=== PATIENT | male | born 1935 | race Caucasian/White ===

== ENCOUNTER 2020-08-26 02:45 | Inpatient (IN) | payer MEDICARE ==
[2020-08-26] MEDS ORDERED: Ondansetron PF 4 MG/2 ML Vial ONE ×2 (02:52→04:35)
[2020-08-26] MEDS ORDERED: Atropine Sulfate 1 mg/10 ml Syringe ONE (02:57)
[2020-08-26] MEDS ORDERED: Heparin 10,000 UNITS/ 10 ML VIAL ONE ×2 (03:13→04:13)
[2020-08-26] MEDS ORDERED: Midazolam HCl 2 mg/2 ml Vial ONE (03:24)
[2020-08-26] MEDS ORDERED: Clopidogrel Bisulfate 300 MG TAB ONE (03:24)
[2020-08-26] MEDS ORDERED: Fentanyl 100 MCG/2 ML VIAL ONE (03:24)
[2020-08-26] MEDS ORDERED: Amiodarone 150 MG/3 ML VIAL ONE ×2 (03:36)
[2020-08-26 03:39] LABS: Hemoglobin 8.9 g/dL (14.0-18.0); Mean Corpuscular HGB CONC 29.9 g/dL (32.0-36.0); Mean Corpuscular Hemoglobin 20.5 pg (27.0-31.0); Mean Corpuscular Volume 68.4 fL (78.0-98.0); Mean Platelet Volume 7.8 fL (7.4-10.4); Platelet Count 283 thou/uL (130-400); RBC Distribution Width 20.3 % (11.5-14.5); Red Blood Cell (RBC) Count 4.32 mill/uL (4.70-6.10); White Blood Cell (WBC) Count 8.6 thou/uL (4.8-10.8)
[2020-08-26 03:45] LABS: ALT (SGPT) 17 U/L (8-55); AST (SGOT) 27 U/L (5-34); Albumin 3.5 g/dL (3.4-4.8); Alkaline Phosphatase 116 U/L (40-110); Anion Gap 20 mmol/L (10-20); BUN (Urea Nitrogen) 21 mg/dL (8.4-25.7); Bilirubin, Total 0.5 mg/dL (0.2-1.2); Calc. Creatinine Clearance 0 mL/min (70-130); Calcium 9.8 mg/dL (7.8-10.44); Carbon Dioxide 17 mmol/L (23-31); Chloride 102 mmol/L (98-107); Globulin 2.5 g/dL (2.4-3.5); Glucose 136 mg/dL (83-110); Potassium 3.8 mmol/L (3.5-5.1); Sodium 135 mmol/L (136-145)
[2020-08-26 03:56] LABS: #Eosinphils 0.1 thou/uL (0.0-0.7); #Lymphocytes 0.6 thou/uL (1.20-3.40); #Monocytes 0.5 thou/uL (0.11-0.59); #Neutrophils 7.3 thou/uL (1.40-6.50); %Basophils 0.5 % (0.0-1.0); %Eosinophils 0.6 % (0.0-10.0); %Lymphocytes 7.5 % (21.0-51.0); %Monocytes 6.1 % (0.0-10.0); %Neutrophils 85.3 % (42.0-75.0); Anisocytosis SLIGHT = 6-15 cells (100X) (0-5/hpf); Elliptocytes SLIGHT = 2-5 cells (100X) (0-1/hpf); MDiff Complete? YES; Microcytosis SLIGHT = 6-15 cells (100X) (0-5/hpf); Tear Drops SLIGHT = 2-5 cells (100X) (0-1/hpf)
[2020-08-26] MEDS ORDERED: Heparin 0 ML ONE (03:59)
[2020-08-26] MEDS ORDERED: Milk Of Magnesia 30 ML UDCUP PO PRN (04:04)
[2020-08-26] MEDS ORDERED: Acetaminophen/Codeine 30-300mg Tablet PO PRN (04:04)
[2020-08-26] MEDS ORDERED: Nitroglycerin 0.4 MG TAB (25 Tab Bottle) SL PRN (04:04)
[2020-08-26] MEDS ORDERED: Sodium Chloride 0.9% 1,000 ML IV SCH (04:15)
[2020-08-26] MEDS ORDERED: Lidocaine 1% (PF) 30 ML VIAL ONE (04:16)
[2020-08-26] MEDS ORDERED: Verapamil 5 MG/2 ML VIAL ONE (04:16)
[2020-08-26] MEDS ORDERED: Nitroglycerin 100MG/250ML BOT 250 ML ONE (04:16)
[2020-08-26] MEDS ORDERED: Adenosine 6 MG/2 ML VIAL ONE (04:16)
[2020-08-26 04:19] LABS: CKMB 8.8 ng/mL (0-6.6)
[2020-08-26 05:00] VITALS: BMI 26.6
[2020-08-26] MEDS ORDERED: Amiodarone 450 MG in Dextrose 5% in Water 250 ML IVPB SCH (05:45)
[2020-08-26 09:07] LABS: SARS-CoV-2 PCR by NAA Not Detected (NotDetected)
[2020-08-26] MEDS: Clopidogrel Bisulfate 75 MG TAB PO SCH (09:11)
[2020-08-26] MEDS: Aspirin Chewable 81 MG TAB PO SCH (09:11)
[2020-08-26] MEDS ORDERED: Iopamidol 370 76% 50 ML VIAL FS ONE (10:36)
[2020-08-26] MEDS ORDERED: Iopamidol 370 76% 100 ML VIAL ONE (10:36)
[2020-08-26] MEDS ORDERED: Lorazepam 2 MG/ML VIAL SLOW IVP PRN (11:18)
[2020-08-26] MEDS: Ipratropium Bromide 2.5 ml Neb NEB SCH ×3 (12:40→22:48)
[2020-08-26] MEDS: Tiotropium Bromide 4 GM INHALER IH SCH (18:42)
[2020-08-26] MEDS ORDERED: Famotidine 20 MG TAB PO SCH (21:00)
[2020-08-27 04:16] LABS: #Lymphocytes 1.1 thou/uL (1.20-3.40); #Monocytes 0.7 thou/uL (0.11-0.59); #Neutrophils 7.2 thou/uL (1.40-6.50); %Basophils 0.2 % (0.0-1.0); %Eosinophils 0.5 % (0.0-10.0); %Lymphocytes 11.9 % (21.0-51.0); %Monocytes 7.3 % (0.0-10.0); %Neutrophils 80.1 % (42.0-75.0); Hemoglobin 7.7 g/dL (14.0-18.0); Mean Corpuscular HGB CONC 29.6 g/dL (32.0-36.0); Mean Corpuscular Hemoglobin 20.5 pg (27.0-31.0); Mean Corpuscular Volume 69.2 fL (78.0-98.0); Mean Platelet Volume 8.7 fL (7.4-10.4); Platelet Count 229 thou/uL (130-400); RBC Distribution Width 20.3 % (11.5-14.5); Red Blood Cell (RBC) Count 3.77 mill/uL (4.70-6.10)
[2020-08-27 04:23] LABS: ALT (SGPT) 25 U/L (8-55); AST (SGOT) 100 U/L (5-34); Alkaline Phosphatase 91 U/L (40-110); Anion Gap 14 mmol/L (10-20); BUN (Urea Nitrogen) 17 mg/dL (8.4-25.7); Bilirubin, Total 0.5 mg/dL (0.2-1.2); Calc. Creatinine Clearance 83 mL/min (70-130); Calcium 8.7 mg/dL (7.8-10.44); Carbon Dioxide 19 mmol/L (23-31); Chloride 105 mmol/L (98-107); Globulin 2.3 g/dL (2.4-3.5); Glucose 98 mg/dL (83-110); Iron 12 ug/dL (65-175); Iron Binding Capacity, Total 326 mcg/dL (261-462); Potassium 3.9 mmol/L (3.5-5.1); Protein, Total 5.3 g/dL (5.8-8.1); Sodium 134 mmol/L (136-145)
[2020-08-27 05:08] LABS: Anisocytosis SLIGHT = 6-15 cells (100X) (0-5/hpf)
[2020-08-27 05:09] LABS: Elliptocytes SLIGHT = 2-5 cells (100X) (0-1/hpf); Microcytosis SLIGHT = 6-15 cells (100X) (0-5/hpf)
[2020-08-27] MEDS: Ipratropium Bromide 2.5 ml Neb NEB SCH ×3 (06:43→18:56)
[2020-08-27] MEDS: Tiotropium Bromide 4 GM INHALER IH SCH ×2 (06:45→18:59)
[2020-08-27] MEDS: Aspirin Chewable 81 MG TAB PO SCH (08:40)
[2020-08-27] MEDS: Folic Acid 1 MG TAB PO SCH (08:42)
[2020-08-27] MEDS: Thiamine 100 MG TAB PO SCH (08:42)
[2020-08-27] MEDS: Clopidogrel Bisulfate 75 MG TAB PO SCH (08:42)
[2020-08-27] MEDS: Tamsulosin HCl 0.4 MG CAP PO SCH (20:57)
[2020-08-28] MEDS: Ipratropium Bromide 2.5 ml Neb NEB SCH ×4 (00:08→18:52)
[2020-08-28 04:51] LABS: #Eosinphils 0.1 thou/uL (0.0-0.7); #Lymphocytes 1.2 thou/uL (1.20-3.40); #Monocytes 0.6 thou/uL (0.11-0.59); #Neutrophils 5.9 thou/uL (1.40-6.50); %Basophils 0.6 % (0.0-1.0); %Eosinophils 1.8 % (0.0-10.0); %Lymphocytes 15.1 % (21.0-51.0); %Monocytes 8.1 % (0.0-10.0); %Neutrophils 74.5 % (42.0-75.0); Hemoglobin 7.9 g/dL (14.0-18.0); Mean Corpuscular HGB CONC 29.2 g/dL (32.0-36.0); Mean Corpuscular Hemoglobin 20.3 pg (27.0-31.0); Mean Corpuscular Volume 69.7 fL (78.0-98.0); Mean Platelet Volume 7.7 fL (7.4-10.4); Platelet Count 216 thou/uL (130-400); RBC Distribution Width 20.3 % (11.5-14.5); Red Blood Cell (RBC) Count 3.88 mill/uL (4.70-6.10); White Blood Cell (WBC) Count 7.9 thou/uL (4.8-10.8)
[2020-08-28] MEDS: Tiotropium Bromide 4 GM INHALER IH SCH ×2 (06:56→18:52)
[2020-08-28] MEDS ORDERED: GoLYTELY 4,000 ml Bottle PO SCH ×2 (08:15→18:00)
[2020-08-28] MEDS: Clopidogrel Bisulfate 75 MG TAB PO SCH (08:39)
[2020-08-28] MEDS: Thiamine 100 MG TAB PO SCH (08:39)
[2020-08-28] MEDS: Tamsulosin HCl 0.4 MG CAP PO SCH ×2 (08:39→21:10)
[2020-08-28] MEDS: Aspirin Chewable 81 MG TAB PO SCH (08:39)
[2020-08-28] MEDS: Atorvastatin Calcium 40 MG TAB PO SCH (08:40)
[2020-08-28] MEDS: Folic Acid 1 MG TAB PO SCH (08:40)
[2020-08-29] MEDS: Ipratropium Bromide 2.5 ml Neb NEB SCH ×5 (00:02→23:33)
[2020-08-29] MEDS ORDERED: Fentanyl 100 MCG/2 ML VIAL ONE (09:48)
[2020-08-29] MEDS ORDERED: PROPOFOL 200 MG/20 ML VIAL ONE (09:57)
[2020-08-29] MEDS: Thiamine 100 MG TAB PO SCH (13:08)
[2020-08-29] MEDS: Aspirin Chewable 81 MG TAB PO SCH (13:08)
[2020-08-29] MEDS: Atorvastatin Calcium 40 MG TAB PO SCH (13:09)
[2020-08-29] MEDS: Folic Acid 1 MG TAB PO SCH (13:09)
[2020-08-29] MEDS: Clopidogrel Bisulfate 75 MG TAB PO SCH (13:09)
[2020-08-29] MEDS: Tamsulosin HCl 0.4 MG CAP PO SCH ×2 (13:09→21:49)
[2020-08-30] MEDS: Ipratropium Bromide 2.5 ml Neb NEB SCH ×2 (07:23→12:39)
[2020-08-30] MEDS: Thiamine 100 MG TAB PO SCH (08:45)
[2020-08-30] MEDS: Clopidogrel Bisulfate 75 MG TAB PO SCH (08:45)
[2020-08-30] MEDS: Atorvastatin Calcium 40 MG TAB PO SCH (08:45)
[2020-08-30] MEDS: Tamsulosin HCl 0.4 MG CAP PO SCH (08:45)
[2020-08-30] MEDS: Folic Acid 1 MG TAB PO SCH (08:45)
[2020-08-30] MEDS: Aspirin Chewable 81 MG TAB PO SCH (08:45)
[2020-08-30 11:25] VITALS: BP 125/63; TEMP 98.2
== END 2020-08-30 14:55 | disposition home or self-care (01) | DRG 248 ==
LOC: CCL 02:45 → CCU 03:21 → 2NO 08-27 17:31
PROVIDERS: ADMIT Internal Medicine Cardiovascular Disease; ATTEND Internal Medicine Cardiovascular Disease
PROC: 02703DZ Dilation of Coronary Artery, One Artery with Intraluminal Device, Percutaneous Approach (ICD-10-PCS; principal; 2020-08-26)
PROC: 4A023N7 Measurement of Cardiac Sampling and Pressure, Left Heart, Percutaneous Approach (ICD-10-PCS; 2020-08-26)
PROC: B215YZZ Fluoroscopy of Left Heart using Other Contrast (ICD-10-PCS; 2020-08-26)
PROC: 5A2204Z Restoration of Cardiac Rhythm, Single (ICD-10-PCS; 2020-08-26)
PROC: 0DJ08ZZ Inspection of Upper Intestinal Tract, Via Natural or Artificial Opening Endoscopic (ICD-10-PCS; 2020-08-29)
PROC: 0DBN8ZZ Excision of Sigmoid Colon, Via Natural or Artificial Opening Endoscopic (ICD-10-PCS; 2020-08-29)
DX: I21.19 ST elevation (STEMI) myocardial infarction involving other coronary artery of inferior wall (principal); I49.01 Ventricular fibrillation; Z20.822 Contact with and (suspected) exposure to COVID-19; I25.10 Atherosclerotic heart disease of native coronary artery without angina pectoris; J44.9 Chronic obstructive pulmonary disease, unspecified; F10.10 Alcohol abuse, uncomplicated; D50.9 Iron deficiency anemia, unspecified; I27.20 Pulmonary hypertension, unspecified; K44.9 Diaphragmatic hernia without obstruction or gangrene; K31.819 Angiodysplasia of stomach and duodenum without bleeding; K57.30 Diverticulosis of large intestine without perforation or abscess without bleeding; K25.9 Gastric ulcer, unspecified as acute or chronic, without hemorrhage or perforation; Z95.1 Presence of aortocoronary bypass graft; Z87.891 Personal history of nicotine dependence; Z79.899 Other long term (current) drug therapy
CPT/HCPCS: 36415; 71045; 76942; 80053; 82553; 83540; 83550; 83880; 84484; 85025; 85347; 87635; 88305; 92941; 92960; 93005; 93010; 93306; 93458; 93798; 94640; 94760; C1757; C1876; J0153; J0282; J0461; J1644; J2001; J2060; J2250; J2405; J2704; J3010; Q9967; U0003; U0005

== ENCOUNTER 2021-12-25 11:22 | Emergency (ER) | payer MEDICARE ==
[2021-12-25 12:06] LABS: #Basophils 0.1 thou/uL (0.0-0.2); #Lymphocytes 0.8 thou/uL (1.20-3.40); #Monocytes 0.6 thou/uL (0.11-0.59); #Neutrophils 3.1 thou/uL (1.40-6.50); %Basophils 1.4 % (0.0-1.0); %Eosinophils 0.9 % (0.0-10.0); %Monocytes 13.7 % (0.0-10.0); Hemoglobin 13.7 g/dL (14.0-18.0); Mean Corpuscular HGB CONC 31.5 g/dL (32.0-36.0); Mean Corpuscular Hemoglobin 29.2 pg (27.0-31.0); Mean Corpuscular Volume 92.5 fL (78.0-98.0); Mean Platelet Volume 9.7 fL (7.4-10.4); Platelet Count 185 thou/uL (130-400); RBC Distribution Width 22.2 % (11.5-14.5); Red Blood Cell (RBC) Count 4.69 mill/uL (4.70-6.10); White Blood Cell (WBC) Count 4.6 thou/uL (4.8-10.8)
[2021-12-25 12:25] LABS: MDiff Complete? YES
[2021-12-25 12:26] LABS: Anisocytosis SLIGHT = 6-15 cells (100X) (0-5/hpf); Platelet Morphology Comment Appears Adequate; Polychromasia SLIGHT = 2-3 cells (100X) (0-2/hpf)
[2021-12-25 12:36] LABS: ALT (SGPT) 108 U/L (8-55); AST (SGOT) 82 U/L (5-34); Albumin 3.1 g/dL (3.4-4.8); Alkaline Phosphatase 118 U/L (40-110); Anion Gap 23 mmol/L (10-20); BUN (Urea Nitrogen) 13 mg/dL (8.4-25.7); Bilirubin, Total 0.7 mg/dL (0.2-1.2); Calc. Creatinine Clearance 0 mL/min (70-130); Calcium 9.5 mg/dL (7.8-10.44); Carbon Dioxide 26 mmol/L (23-31); Chloride 88 mmol/L (98-107); Estimated GFR 76; Globulin 2.8 g/dL (2.4-3.5); Glucose 99 mg/dL (83-110); Potassium 3.9 mmol/L (3.5-5.1); Protein, Total 5.9 g/dL (5.8-8.1); Sodium 133 mmol/L (136-145)
[2021-12-25 14:41] LABS: Bilirubin Negative (Negative); Blood, Urine Negative (Negative); Clarity Clear (Clear); Glucose, Urine (Dipstick) Normal (Negative); Ketone, Urine 20 mg/dL (Negative); Leukocyte Negative Leu/uL (Negative); Nitrite Negative (Negative); Protein, Urine (Dipstick) Negative (Neg-Trace); Specific Gravity, Urine 1.011 (1.002-1.036)
== END 2021-12-25 15:37 | disposition home or self-care (01) ==
LOC: ERS 11:22
DX: E86.0 Dehydration (principal); R94.5 Abnormal results of liver function studies; I10 Essential (primary) hypertension; Z87.891 Personal history of nicotine dependence; E78.00 Pure hypercholesterolemia, unspecified
CPT/HCPCS: 71045; 80053; 81003; 84484; 85025; 93005; 99285; U0003; U0005; 36415

== ENCOUNTER 2021-12-29 11:17 | Emergency (ER) | payer MEDICARE ==
[2021-12-29 12:14] LABS: #Lymphocytes 0.9 thou/uL (1.20-3.40); #Monocytes 0.5 thou/uL (0.11-0.59); #Neutrophils 3.1 thou/uL (1.40-6.50); %Basophils 0.9 % (0.0-1.0); %Eosinophils 0.7 % (0.0-10.0); %Lymphocytes 19.7 % (21.0-51.0); %Monocytes 11.1 % (0.0-10.0); %Neutrophils 67.6 % (42.0-75.0); Hemoglobin 13.4 g/dL (14.0-18.0); Mean Corpuscular HGB CONC 31.9 g/dL (32.0-36.0); Mean Corpuscular Hemoglobin 29.4 pg (27.0-31.0); Platelet Count 180 thou/uL (130-400); RBC Distribution Width 22.4 % (11.5-14.5); Red Blood Cell (RBC) Count 4.56 mill/uL (4.70-6.10); White Blood Cell (WBC) Count 4.6 thou/uL (4.8-10.8)
[2021-12-29 12:21] LABS: ALT (SGPT) 74 U/L (8-55); AST (SGOT) 55 U/L (5-34); Albumin 2.7 g/dL (3.4-4.8); Alkaline Phosphatase 103 U/L (40-110); Anion Gap 17 mmol/L (10-20); BUN (Urea Nitrogen) 9 mg/dL (8.4-25.7); Bilirubin, Total 0.7 mg/dL (0.2-1.2); CK (CPK) 172 U/L (30-200); Calc. Creatinine Clearance 0 mL/min (70-130); Carbon Dioxide 25 mmol/L (23-31); Chloride 91 mmol/L (98-107); Estimated GFR 86; Globulin 1.9 g/dL (2.4-3.5); Glucose 105 mg/dL (83-110); Lipase 130 U/L (8-78); Magnesium 1.4 mg/dL (1.6-2.6); Potassium 3.3 mmol/L (3.5-5.1); Protein, Total 4.6 g/dL (5.8-8.1); Sodium 130 mmol/L (136-145)
[2021-12-29 12:40] LABS: Anisocytosis SLIGHT = 6-15 cells (100X) (0-5/hpf); MDiff Complete? YES; Platelet Morphology Comment Appears Adequate; Spherocytes SLIGHT = 1-5 cells (100X) (None Seen)
[2021-12-29 13:29] LABS: Bacteria/HPF None Seen HPF (None Seen); Bilirubin Negative (Negative); Blood, Urine 2+ (Negative); Clarity Clear (Clear); Glucose, Urine (Dipstick) Normal (Negative); Ketone, Urine Negative (Negative); Leukocyte Negative Leu/uL (Negative); Nitrite Negative (Negative); Protein, Urine (Dipstick) 10 mg/dL (Neg-Trace); RBC/HPF 21-50 HPF (0-3); Squamous Epithelial None Seen HPF (0-3); Urobilinogen Normal mg/dL (Less than 2); WBC/HPF 0-3 HPF (0-3); pH, Urine 8.5 (5.0-9.0)
[2021-12-29] MEDS ORDERED: Iopamidol-370 76% 500 ML 1 ML ONE (13:54)
== END 2021-12-29 15:18 | disposition home or self-care (01) ==
LOC: ERS 11:17
DX: R33.9 Retention of urine, unspecified (principal); I10 Essential (primary) hypertension; E78.00 Pure hypercholesterolemia, unspecified; Z87.891 Personal history of nicotine dependence; Z79.899 Other long term (current) drug therapy
CPT/HCPCS: 36415; 51702; 74177; 80053; 81003; 81015; 82550; 83690; 83735; 84484; 85025; 93005; Q9967

== ENCOUNTER 2022-07-13 09:56 | Inpatient (IN) | payer MEDICARE ==
[2022-07-13 11:09] LABS: Hemoglobin 13.3 g/dL (14.0-18.0); Mean Corpuscular HGB CONC 32.1 g/dL (32.0-36.0); Mean Corpuscular Hemoglobin 29.1 pg (27.0-31.0); Mean Corpuscular Volume 90.8 fl (78.0-98.0); Mean Platelet Volume 11.1 fL (7.4-10.4); Platelet Count 188 10x3/uL (130-400); RBC Distribution Width 15.2 % (11.5-14.5); Red Blood Cell (RBC) Count 4.58 mill/uL (4.70-6.10)
[2022-07-13 11:27] LABS: ALT (SGPT) 85 U/L (8-55); AST (SGOT) 123 U/L (5-34); Albumin 3.3 g/dL (3.4-4.8); Alkaline Phosphatase 242 U/L (40-110); Anion Gap 23 mmol/L (10-20); BUN (Urea Nitrogen) 24 mg/dL (8.4-25.7); Bilirubin, Total 0.5 mg/dL (0.2-1.2); CK (CPK) 34 U/L (30-200); Calc. Creatinine Clearance 0 mL/min (70-130); Calcium 9.5 mg/dL (7.8-10.44); Carbon Dioxide 16 mmol/L (23-31); Chloride 104 mmol/L (98-107); Estimated GFR 32; Glucose 96 mg/dL (83-110); Potassium 4.3 mmol/L (3.5-5.1); Protein, Total 6.3 g/dL (5.8-8.1); Sodium 139 mmol/L (136-145)
[2022-07-13 11:36] LABS: Anisocytosis SLIGHT = 6-15 cells (100X) (0-5/hpf); Band 21 % (5-11); Lymphocytes 3 % (21-51); MDiff Complete? YES; Metamyelocyte 3 % (0-0); Monocytes 1 % (0-10); Neutrophil 72 % (42-75); Platelet Morphology Comment Appears Adequate
[2022-07-13] MEDS ORDERED: Vancomycin 1 GM/200 ML (FROZEN) BAG ONE (12:22)
[2022-07-13] MEDS ORDERED: cefTRIAXone\\ROCEPHIN 2 GM VIAL ONE (12:22)
[2022-07-13 12:29] LABS: Bacteria/HPF 4+ HPF (None Seen); Bilirubin Negative (Negative); Blood, Urine 2+ (Negative); Clarity Turbid (Clear); Glucose, Urine (Dipstick) Normal (Negative); Ketone, Urine Negative (Negative); Leukocyte 500 Leu/uL (Negative); Nitrite Negative (Negative); Protein, Urine (Dipstick) 30 mg/dL (Neg-Trace); RBC/HPF Greater than 50 HPF (0-3); Specific Gravity, Urine 1.015 (1.002-1.036); Squamous Epithelial None Seen HPF (0-3); Urobilinogen Normal mg/dL (Less than 2); WBC/HPF 21-50 HPF (0-3); pH, Urine 6.5 (5.0-9.0)
[2022-07-13] MEDS ORDERED: Ondansetron PF 4 MG/2 ML Vial IVP PRN (13:02)
[2022-07-13] MEDS ORDERED: Guaifenesin DM 100-10/5 ML UDCUP PO PRN (13:02)
[2022-07-13] MEDS ORDERED: Senokot S 8.6-50 MG TAB PO PRN (13:02)
[2022-07-13 14:54] LABS: Lactic Acid 7.6 mmol/L (0.5-2.2)
[2022-07-13] MEDS: Sodium Chloride 0.9% 1,000 ML IV SCH (16:28)
[2022-07-13 18:09] VITALS: BMI 26.5
[2022-07-13 19:30] LABS: SARS-CoV-2 NAA Rapid Test Not Detected (NotDetected)
[2022-07-13] MEDS: Heparin 5,000 UNITS/ML VIAL SC SCH (21:00)
[2022-07-13] MEDS: Tamsulosin HCl 0.4 MG CAP PO SCH (21:01)
[2022-07-13] MEDS: Acetaminophen 325 MG TAB PO PRN (21:01)
[2022-07-13] MEDS ORDERED: Sodium Chloride 0.9% 500 ML IV SCH ×2 (21:30→22:30)
[2022-07-13] MEDS ORDERED: VANCOMYCIN IVPB PRN (22:21)
[2022-07-13] MEDS ORDERED: Midodrine HCl 5 MG TAB PO SCH (22:45)
[2022-07-13 23:09] LABS: Mean Corpuscular HGB CONC 32.3 g/dL (32.0-36.0); Mean Corpuscular Hemoglobin 29.2 pg (27.0-31.0); Mean Corpuscular Volume 90.4 fl (78.0-98.0); Mean Platelet Volume 11.2 fL (7.4-10.4); Platelet Count 138 10x3/uL (130-400); RBC Distribution Width 15.1 % (11.5-14.5); Red Blood Cell (RBC) Count 3.44 mill/uL (4.70-6.10); White Blood Cell (WBC) Count 15.9 10x3/uL (4.8-10.8)
[2022-07-13 23:10] LABS: Lactic Acid 4.9 mmol/L (0.5-2.2)
[2022-07-13 23:13] LABS: ALT (SGPT) 45 U/L (8-55); AST (SGOT) 48 U/L (5-34); Albumin 2.5 g/dL (3.4-4.8); Alkaline Phosphatase 140 U/L (40-110); Anion Gap 11 mmol/L (10-20); BUN (Urea Nitrogen) 26 mg/dL (8.4-25.7); Bilirubin, Total 0.3 mg/dL (0.2-1.2); Calc. Creatinine Clearance 41 mL/min (70-130); Calcium 8.1 mg/dL (7.8-10.44); Carbon Dioxide 20 mmol/L (23-31); Chloride 108 mmol/L (98-107); Estimated GFR 45; Globulin 2.2 g/dL (2.4-3.5); Glucose 73 mg/dL (83-110); Potassium 4.4 mmol/L (3.5-5.1); Protein, Total 4.7 g/dL (5.8-8.1); Sodium 135 mmol/L (136-145)
[2022-07-13 23:38] LABS: Band 27 % (5-11); Lymphocytes 6 % (21-51); MDiff Complete? YES; Metamyelocyte 3 % (0-0); Monocytes 2 % (0-10); Neutrophil 62 % (42-75)
[2022-07-14 00:22] LABS: Actual Bicarbonate (HCO3a) 19.5 mEq/L (22-28); Base Excess (BEa) -3.4 mEq/L (-2.0 to +3.0); Calcium, Ionized (arterial) 1.14 mmol/L (1.12-1.30); Carboxyhemoglobin (COHb) 0.3 gm% (0.0-3.0); Hemoglobin (Hb) 10.2 g/dL (14.0-18.0); O2 Tension (PaO2), arterial 79.3 mmHg (> 60.0); Potassium - ABG Lab 3.99 mmol/L (3.70-5.30); pH, Arterial 7.46 (7.35-7.45)
[2022-07-14 00:28] LABS: Puncture Site RRA
[2022-07-14] MEDS ORDERED: NOREPINEPHRINE 8 MG/250 ML-D5W 250 ML IVPB SCH (00:45)
[2022-07-14 01:06] LABS: Lactic Acid 1.9 mmol/L (0.5-2.2)
[2022-07-14] MEDS: Sodium Chloride 0.9% 1,000 ML IV SCH ×3 (01:09→12:24)
[2022-07-14] MEDS: Cefepime 1 GM in Sodium Chloride 0.9% 100 ML IVPB SCH ×2 (01:17→12:14)
[2022-07-14] MEDS ORDERED: Dextrose 5% in Water 1,000 ML IV PRN (01:51)
[2022-07-14] MEDS ORDERED: Dextrose 50% Abboject 50 ML SYRINGE SLOW IVP PRN (01:51)
[2022-07-14] MEDS: Vancomycin 1 GM in Premix Bag 1 BAG IVPB SCH (02:45)
[2022-07-14 03:59] LABS: ALT (SGPT) 40 U/L (8-55); AST (SGOT) 46 U/L (5-34); Albumin 2.4 g/dL (3.4-4.8); Alkaline Phosphatase 136 U/L (40-110); Anion Gap 12 mmol/L (10-20); BUN (Urea Nitrogen) 26 mg/dL (8.4-25.7); Bilirubin, Total 0.3 mg/dL (0.2-1.2); Calc. Creatinine Clearance 44 mL/min (70-130); Calcium 7.9 mg/dL (7.8-10.44); Carbon Dioxide 17 mmol/L (23-31); Chloride 112 mmol/L (98-107); Estimated GFR 50; Globulin 2.3 g/dL (2.4-3.5); Glucose 69 mg/dL (83-110); Potassium 4.4 mmol/L (3.5-5.1); Protein, Total 4.7 g/dL (5.8-8.1); Sodium 137 mmol/L (136-145)
[2022-07-14 04:13] LABS: Anisocytosis SLIGHT = 6-15 cells (100X) (0-5/hpf); Band 21 % (5-11); Eosinophils 1 % (0-10); Hemoglobin 9.9 g/dL (14.0-18.0); Large Platelets SLIGHT; Lymphocytes 9 % (21-51); MDiff Complete? YES; Mean Corpuscular Volume 90.6 fl (78.0-98.0); Monocytes 3 % (0-10); Neutrophil 65 % (42-75); Ovalocytes SLIGHT = 2-5 cells (100X) (0-1/hpf); Platelet Count 129 10x3/uL (130-400); Red Blood Cell (RBC) Count 3.41 mill/uL (4.70-6.10); White Blood Cell (WBC) Count 14.1 10x3/uL (4.8-10.8)
[2022-07-14] MEDS ORDERED: Nebivolol HCl 5 MG TAB PO SCH (09:00)
[2022-07-14] MEDS ORDERED: Non-Formulary Item 1 EACH (Omeprazole [Omeprazole] 20 MG Capsule.Dr) PO SCH (09:00)
[2022-07-14] MEDS: Heparin 5,000 UNITS/ML VIAL SC SCH ×2 (09:10→21:22)
[2022-07-14] MEDS: Aspirin Chewable 81 MG TAB PO SCH (09:10)
[2022-07-14] MEDS: Atorvastatin Calcium 40 MG TAB PO SCH (09:10)
[2022-07-14] MEDS: Folic Acid 1 MG TAB PO SCH (09:11)
[2022-07-14] MEDS: Clopidogrel Bisulfate 75 MG TAB PO SCH (09:11)
[2022-07-14] MEDS: Tamsulosin HCl 0.4 MG CAP PO SCH ×2 (09:11→21:09)
[2022-07-14] MEDS ORDERED: cefTRIAXone\\ROCEPHIN 2 GM in Sodium Chloride 0.9% 100 ML IVPB SCH (13:00)
[2022-07-14] MEDS: Acetaminophen 325 MG TAB PO PRN (21:08)
[2022-07-15] MEDS: Cefepime 1 GM in Sodium Chloride 0.9% 100 ML IVPB SCH ×2 (01:25→12:38)
[2022-07-15 01:53] LABS: Vancomycin, Trough 10.6 ug/mL
[2022-07-15] MEDS: Vancomycin 1 GM in Premix Bag 1 BAG IVPB SCH (03:09)
[2022-07-15] MEDS: Vancomycin 1.5 GRAM/300 ML BAG 1.5 GM in Premix Bag 1 BAG IVPB SCH (04:48)
[2022-07-15] MEDS: Heparin 5,000 UNITS/ML VIAL SC SCH ×2 (08:44→20:08)
[2022-07-15] MEDS: Folic Acid 1 MG TAB PO SCH (08:45)
[2022-07-15] MEDS: Clopidogrel Bisulfate 75 MG TAB PO SCH (08:45)
[2022-07-15] MEDS: Aspirin Chewable 81 MG TAB PO SCH (08:45)
[2022-07-15] MEDS: Atorvastatin Calcium 40 MG TAB PO SCH (08:45)
[2022-07-15] MEDS: Tamsulosin HCl 0.4 MG CAP PO SCH ×2 (08:45→20:08)
[2022-07-15] MEDS: Sodium Chloride 0.9% 1,000 ML IV SCH ×2 (08:45→14:59)
[2022-07-15] MEDS ORDERED: Milk Of Magnesia 30 ML UDCUP PO SCH (15:45)
[2022-07-16] MEDS: Sodium Chloride 0.9% 1,000 ML IV SCH ×2 (00:25→13:21)
[2022-07-16] MEDS: Cefepime 1 GM in Sodium Chloride 0.9% 100 ML IVPB SCH ×2 (00:25→13:21)
[2022-07-16] MEDS: Vancomycin 1.5 GRAM/300 ML BAG 1.5 GM in Premix Bag 1 BAG IVPB SCH (04:35)
[2022-07-16 06:18] LABS: Anion Gap 9 mmol/L (10-20); BUN (Urea Nitrogen) 15 mg/dL (8.4-25.7); Calc. Creatinine Clearance 82 mL/min (70-130); Calcium 8.4 mg/dL (7.8-10.44); Carbon Dioxide 20 mmol/L (23-31); Chloride 114 mmol/L (98-107); Estimated GFR 88; Glucose 91 mg/dL (83-110); Potassium 4.1 mmol/L (3.5-5.1); Sodium 139 mmol/L (136-145)
[2022-07-16 08:20] LABS: Hemoglobin 9.8 g/dL (14.0-18.0); Mean Corpuscular HGB CONC 32.1 g/dL (32.0-36.0); Mean Corpuscular Volume 90.3 fl (78.0-98.0); Mean Platelet Volume 11.5 fL (7.4-10.4); Platelet Count 137 10x3/uL (130-400); RBC Distribution Width 14.8 % (11.5-14.5); Red Blood Cell (RBC) Count 3.37 mill/uL (4.70-6.10); White Blood Cell (WBC) Count 7.3 10x3/uL (4.8-10.8)
[2022-07-16] MEDS: Atorvastatin Calcium 40 MG TAB PO SCH (09:29)
[2022-07-16] MEDS: Heparin 5,000 UNITS/ML VIAL SC SCH ×2 (09:29→20:11)
[2022-07-16] MEDS: Aspirin Chewable 81 MG TAB PO SCH (09:29)
[2022-07-16] MEDS: Folic Acid 1 MG TAB PO SCH (09:29)
[2022-07-16] MEDS: Clopidogrel Bisulfate 75 MG TAB PO SCH (09:29)
[2022-07-16] MEDS: Tamsulosin HCl 0.4 MG CAP PO SCH ×2 (09:29→20:11)
[2022-07-16 11:22] LABS: Band 10 % (5-11); Eosinophils 1 % (0-10); Lymphocytes 16 % (21-51); MDiff Complete? YES; Monocytes 2 % (0-10); Neutrophil 70 % (42-75); Polychromasia SLIGHT = 2-3 cells (100X) (0-2/hpf)
[2022-07-17] MEDS: Cefepime 1 GM in Sodium Chloride 0.9% 100 ML IVPB SCH ×2 (00:45→14:23)
[2022-07-17] MEDS: Sodium Chloride 0.9% 1,000 ML IV SCH ×2 (00:45→09:29)
[2022-07-17 04:18] LABS: Vancomycin, Trough 18.2 ug/mL
[2022-07-17] MEDS: Vancomycin 1.5 GRAM/300 ML BAG 1.5 GM in Premix Bag 1 BAG IVPB SCH (04:54)
[2022-07-17] MEDS: Atorvastatin Calcium 40 MG TAB PO SCH (08:46)
[2022-07-17] MEDS: Aspirin Chewable 81 MG TAB PO SCH (08:46)
[2022-07-17] MEDS: Folic Acid 1 MG TAB PO SCH (08:47)
[2022-07-17] MEDS: Clopidogrel Bisulfate 75 MG TAB PO SCH (08:47)
[2022-07-17] MEDS: Heparin 5,000 UNITS/ML VIAL SC SCH (08:47)
[2022-07-17] MEDS: Tamsulosin HCl 0.4 MG CAP PO SCH (08:47)
[2022-07-17 15:10] VITALS: BP 155/80; TEMP 99.3
== END 2022-07-17 16:06 | disposition home health service (06) | DRG 698 ==
LOC: ERS 09:56 → SURG B 12:52 → CCU 07-14 02:04 → SURG B 07-14 05:20
PROVIDERS: ADMIT Internal Medicine; ATTEND Hospitalist
PROC: 0T2BX0Z Change Drainage Device in Bladder, External Approach (ICD-10-PCS; 2022-07-13)
PROC: 3E033XZ Introduction of Vasopressor into Peripheral Vein, Percutaneous Approach (ICD-10-PCS; principal; 2022-07-14)
DX: T83.511A Infection and inflammatory reaction due to indwelling urethral catheter, initial encounter (principal); A41.9 Sepsis, unspecified organism; R65.21 Severe sepsis with septic shock; F03.90 Unspecified dementia, unspecified severity, without behavioral disturbance, psychotic disturbance, mood disturbance, and anxiety; F17.210 Nicotine dependence, cigarettes, uncomplicated; I25.10 Atherosclerotic heart disease of native coronary artery without angina pectoris; N40.1 Benign prostatic hyperplasia with lower urinary tract symptoms; R33.8 Other retention of urine; J44.9 Chronic obstructive pulmonary disease, unspecified; R53.81 Other malaise; E78.00 Pure hypercholesterolemia, unspecified; Z20.822 Contact with and (suspected) exposure to COVID-19; Z79.82 Long term (current) use of aspirin; Z79.899 Other long term (current) drug therapy; Z80.49 Family history of malignant neoplasm of other genital organs; Z95.1 Presence of aortocoronary bypass graft
CPT/HCPCS: 36415; 36416; 36600; 51702; 80048; 80053; 80202; 81003; 81015; 82550; 82565; 82805; 83605; 85025; 87040; 87077; 87086; 87149; 87186; 93005; 93306; 96361; 96365; 96367; J0692; J0696; J1644; J3370; J3370-JW; J3490; J7030; J7050; U0002

== ENCOUNTER 2023-05-13 18:20 | Inpatient (IN) | payer MEDICARE ==
[2023-05-13 19:57] LABS: Bacteria/HPF 4+ HPF (None Seen); Bilirubin Negative (Negative); Blood, Urine 2+ (Negative); CAUTI Indications for Culture Alt mental st,lethar; Clarity Turbid (Clear); Glucose, Urine (Dipstick) Normal (Negative); Ketone, Urine Negative (Negative); Leukocyte 500 Leu/uL (Negative); Mucous/LPF Rare LPF (<2+); Nitrite 2+ (Negative); Protein, Urine (Dipstick) 20 mg/dL (Neg-Trace); Specific Gravity, Urine 1.019 (1.002-1.036); Squamous Epithelial 0-3 HPF (0-3); Urobilinogen Normal mg/dL (Less than 2); WBC/HPF Greater than 50 HPF (0-3)
[2023-05-13 19:59] LABS: Urine Culture Reflex Yes Yes
[2023-05-13 20:14] LABS: SARS-CoV-2 NAA Rapid Test Not Detected (NotDetected)
[2023-05-13 20:23] LABS: ALT (SGPT) 13 U/L (8-55); AST (SGOT) 27 U/L (5-34); Albumin 2.8 g/dL (3.4-4.8); Alkaline Phosphatase 128 U/L (40-110); Anion Gap 14 mmol/L (10-20); BUN (Urea Nitrogen) 8 mg/dL (8.4-25.7); Bilirubin, Total 0.7 mg/dL (0.2-1.2); Calc. Creatinine Clearance 0 mL/min (70-130); Calcium 8.7 mg/dL (7.8-10.44); Carbon Dioxide 22 mmol/L (23-31); Chloride 101 mmol/L (98-107); Estimated GFR 87; Globulin 2.8 g/dL (2.4-3.5); Glucose 126 mg/dL (83-110); Lipase 8 U/L (8-78); Potassium 3.3 mmol/L (3.5-5.1); Protein, Total 5.6 g/dL (5.8-8.1); Sodium 134 mmol/L (136-145)
[2023-05-13 20:27] LABS: Troponin I 0.014 ng/mL (< 0.028)
[2023-05-13 20:43] LABS: #Monocytes 0.4 thou/uL (0.11-0.59); #Neutrophils 7.5 thou/uL (1.40-6.50); %Basophils 0.4 % (0.0-1.0); %Lymphocytes 6.8 % (21.0-51.0); %Monocytes 5.1 % (0.0-10.0); %Neutrophils 87.2 % (42.0-75.0); Hematocrit 42.2 % (42.0-52.0); Hemoglobin 13.3 g/dL (14.0-18.0); Mean Corpuscular HGB CONC 31.5 g/dL (32.0-36.0); Mean Corpuscular Hemoglobin 28.7 pg (27.0-31.0); Mean Corpuscular Volume 90.9 fl (78.0-98.0); Mean Platelet Volume 12.1 fL (7.4-10.4); Platelet Count 166 10x3/uL (130-400); RBC Distribution Width 18.1 % (11.5-14.5); Red Blood Cell (RBC) Count 4.64 mill/uL (4.70-6.10); White Blood Cell (WBC) Count 8.6 10x3/uL (4.8-10.8)
[2023-05-13] MEDS ORDERED: Sodium Chloride 0.9% 100 ML ONE (21:08)
[2023-05-13] MEDS ORDERED: cefTRIAXone (ROCEPHIN) 2 GM VIAL ONE (21:08)
[2023-05-13] MEDS ORDERED: Potassium Chloride 20 MEQ TAB ONE (21:24)
[2023-05-13] MEDS ORDERED: Nitroglycerin 0.4 MG TAB (25 Tab Bottle) SL PRN (22:43)
[2023-05-13] MEDS ORDERED: Ondansetron PF 4 MG/2 ML Vial IVP PRN (22:45)
[2023-05-13] MEDS ORDERED: Acetaminophen 325 MG TAB PO PRN (22:45)
[2023-05-13] MEDS ORDERED: Ipratropium/Albuterol 3 ML NEB NEB PRN (22:49)
[2023-05-13] MEDS ORDERED: Potassium Bicarbonate/Cit Ac 25 MEQ TAB PO SCH (23:00)
[2023-05-13] MEDS ORDERED: Azelastine 137 MCG/NASAL Spray 30 ML NS SCH (23:00)
[2023-05-13] MEDS ORDERED: Lactated Ringer's 1,000 ML IV SCH (23:00)
[2023-05-14 01:18] VITALS: BMI 23.2
[2023-05-14 04:46] LABS: #Monocytes 0.4 thou/uL (0.11-0.59); #Neutrophils 5.5 thou/uL (1.40-6.50); %Basophils 0.3 % (0.0-1.0); %Eosinophils 0.2 % (0.0-10.0); %Lymphocytes 7.8 % (21.0-51.0); %Monocytes 5.6 % (0.0-10.0); %Neutrophils 85.5 % (42.0-75.0); Hematocrit 37.1 % (42.0-52.0); Hemoglobin 12.1 g/dL (14.0-18.0); Mean Corpuscular HGB CONC 32.6 g/dL (32.0-36.0); Mean Corpuscular Hemoglobin 28.8 pg (27.0-31.0); Mean Corpuscular Volume 88.3 fl (78.0-98.0); Mean Platelet Volume 12.3 fL (7.4-10.4); Platelet Count 136 10x3/uL (130-400); RBC Distribution Width 17.9 % (11.5-14.5); White Blood Cell (WBC) Count 6.5 10x3/uL (4.8-10.8)
[2023-05-14 05:14] LABS: Anion Gap 14 mmol/L (10-20); BUN (Urea Nitrogen) 7 mg/dL (8.4-25.7); Calc. Creatinine Clearance 88 mL/min (70-130); Carbon Dioxide 21 mmol/L (23-31); Chloride 104 mmol/L (98-107); Estimated GFR 91; Glucose 109 mg/dL (83-110); Potassium 4.6 mmol/L (3.5-5.1); Sodium 134 mmol/L (136-145)
[2023-05-14] MEDS ORDERED: Cefepime 1 GM in Sodium Chloride 0.9% 100 ML IVPB SCH (09:00)
[2023-05-14] MEDS: Tamsulosin HCl 0.4 MG CAP PO SCH ×2 (09:57→20:52)
[2023-05-14] MEDS: Aspirin Chewable 81 MG TAB PO SCH (09:57)
[2023-05-14] MEDS: guaiFENesin ER 600 MG TAB PO SCH ×2 (09:57→20:52)
[2023-05-14] MEDS: Folic Acid 1 MG TAB PO SCH (09:57)
[2023-05-14] MEDS: Atorvastatin Calcium 40 MG TAB PO SCH (09:57)
[2023-05-14] MEDS: Nebivolol HCl 5 MG TAB PO SCH (09:57)
[2023-05-14] MEDS: Clopidogrel Bisulfate 75 MG TAB PO SCH (09:57)
[2023-05-14] MEDS: Azelastine 137 MCG/NASAL Spray 30 ML NS SCH (10:01)
[2023-05-14] MEDS: Lansoprazole 15 MG/5 ML (BATCHED)UDCUP PO SCH (11:47)
[2023-05-14 18:03] LABS: Troponin I 0.028 ng/mL (< 0.028)
[2023-05-14] MEDS: Cefepime 2 GM in Sodium Chloride 0.9% 100 ML IVPB SCH (20:52)
[2023-05-15 04:50] LABS: #Monocytes 0.3 thou/uL (0.11-0.59); #Neutrophils 4.2 thou/uL (1.40-6.50); %Basophils 0.2 % (0.0-1.0); %Eosinophils 0.2 % (0.0-10.0); %Lymphocytes 9.7 % (21.0-51.0); %Monocytes 6.6 % (0.0-10.0); %Neutrophils 82.7 % (42.0-75.0); Hematocrit 32.9 % (42.0-52.0); Mean Corpuscular HGB CONC 33.4 g/dL (32.0-36.0); Mean Corpuscular Volume 86.8 fl (78.0-98.0); Mean Platelet Volume 12.4 fL (7.4-10.4); Platelet Count 114 10x3/uL (130-400); RBC Distribution Width 18.4 % (11.5-14.5); Red Blood Cell (RBC) Count 3.79 mill/uL (4.70-6.10)
[2023-05-15 05:08] LABS: Anion Gap 11 mmol/L (10-20); BUN (Urea Nitrogen) 9 mg/dL (8.4-25.7); Calc. Creatinine Clearance 88 mL/min (70-130); Calcium 7.9 mg/dL (7.8-10.44); Carbon Dioxide 24 mmol/L (23-31); Chloride 102 mmol/L (98-107); Estimated GFR 91; Glucose 81 mg/dL (83-110); Potassium 3.7 mmol/L (3.5-5.1); Sodium 133 mmol/L (136-145)
[2023-05-15] MEDS: Cefepime 2 GM in Sodium Chloride 0.9% 100 ML IVPB SCH ×2 (09:51→20:56)
[2023-05-15] MEDS: Azelastine 137 MCG/NASAL Spray 30 ML NS SCH (09:51)
[2023-05-15] MEDS: Folic Acid 1 MG TAB PO SCH (09:52)
[2023-05-15] MEDS: Nebivolol HCl 5 MG TAB PO SCH (09:52)
[2023-05-15] MEDS: Clopidogrel Bisulfate 75 MG TAB PO SCH (09:52)
[2023-05-15] MEDS: guaiFENesin ER 600 MG TAB PO SCH ×2 (09:52→20:55)
[2023-05-15] MEDS: Aspirin Chewable 81 MG TAB PO SCH (09:52)
[2023-05-15] MEDS: Lansoprazole 15 MG/5 ML (BATCHED)UDCUP PO SCH (09:52)
[2023-05-15] MEDS: Atorvastatin Calcium 40 MG TAB PO SCH (09:52)
[2023-05-15] MEDS: Tamsulosin HCl 0.4 MG CAP PO SCH ×2 (09:52→20:55)
[2023-05-15] MEDS: Benzocaine/Menthol 1 LOZ LOZ PO PRN (16:30)
[2023-05-15] MEDS ORDERED: guaiFENesin ER 600 MG TAB PO SCH (16:30)
[2023-05-16 05:09] LABS: #Monocytes 0.2 thou/uL (0.11-0.59); #Neutrophils 2.3 thou/uL (1.40-6.50); %Basophils 0.3 % (0.0-1.0); %Eosinophils 1.3 % (0.0-10.0); %Lymphocytes 15.6 % (21.0-51.0); %Monocytes 7.6 % (0.0-10.0); %Neutrophils 74.5 % (42.0-75.0); Hemoglobin 10.9 g/dL (14.0-18.0); Mean Corpuscular Hemoglobin 28.6 pg (27.0-31.0); Mean Corpuscular Volume 86.6 fl (78.0-98.0); Mean Platelet Volume 13.3 fL (7.4-10.4); Platelet Count 103 10x3/uL (130-400); RBC Distribution Width 18.5 % (11.5-14.5); Red Blood Cell (RBC) Count 3.81 mill/uL (4.70-6.10)
[2023-05-16 05:32] LABS: Anion Gap 11 mmol/L (10-20); BUN (Urea Nitrogen) 12 mg/dL (8.4-25.7); Calc. Creatinine Clearance 99 mL/min (70-130); Calcium 7.6 mg/dL (7.8-10.44); Carbon Dioxide 22 mmol/L (23-31); Chloride 102 mmol/L (98-107); Estimated GFR 94; Glucose 83 mg/dL (83-110); Potassium 3.6 mmol/L (3.5-5.1); Sodium 131 mmol/L (136-145)
[2023-05-16] MEDS: Cefepime 2 GM in Sodium Chloride 0.9% 100 ML IVPB SCH ×2 (08:31→21:50)
[2023-05-16] MEDS: guaiFENesin ER 600 MG TAB PO SCH ×2 (08:31→21:49)
[2023-05-16] MEDS: Clopidogrel Bisulfate 75 MG TAB PO SCH (08:32)
[2023-05-16] MEDS: Aspirin Chewable 81 MG TAB PO SCH (08:32)
[2023-05-16] MEDS: Folic Acid 1 MG TAB PO SCH (08:32)
[2023-05-16] MEDS: Tamsulosin HCl 0.4 MG CAP PO SCH ×2 (08:32→21:49)
[2023-05-16] MEDS: Nebivolol HCl 5 MG TAB PO SCH (08:32)
[2023-05-16] MEDS: Atorvastatin Calcium 40 MG TAB PO SCH (08:32)
[2023-05-16] MEDS: Azelastine 137 MCG/NASAL Spray 30 ML NS SCH (08:33)
[2023-05-16] MEDS: Lansoprazole 15 MG/5 ML (BATCHED)UDCUP PO SCH (11:34)
[2023-05-16] MEDS: Azithromycin 500 MG in Sodium Chloride 0.9% 250 ML 250 ML IVPB SCH (18:43)
[2023-05-17 04:44] LABS: #Eosinphils 0.1 thou/uL (0.0-0.7); #Monocytes 0.2 thou/uL (0.11-0.59); #Neutrophils 1.8 thou/uL (1.40-6.50); %Basophils 0.3 % (0.0-1.0); %Eosinophils 2.1 % (0.0-10.0); %Lymphocytes 26.3 % (21.0-51.0); %Monocytes 7.6 % (0.0-10.0); %Neutrophils 63.4 % (42.0-75.0); Hematocrit 35.3 % (42.0-52.0); Hemoglobin 11.7 g/dL (14.0-18.0); Mean Corpuscular HGB CONC 33.1 g/dL (32.0-36.0); Mean Corpuscular Hemoglobin 28.4 pg (27.0-31.0); Mean Corpuscular Volume 85.7 fl (78.0-98.0); Mean Platelet Volume 12.9 fL (7.4-10.4); Platelet Count 116 10x3/uL (130-400); RBC Distribution Width 18.3 % (11.5-14.5); Red Blood Cell (RBC) Count 4.12 mill/uL (4.70-6.10); White Blood Cell (WBC) Count 2.9 10x3/uL (4.8-10.8)
[2023-05-17 05:29] LABS: Anion Gap 11 mmol/L (10-20); BUN (Urea Nitrogen) 10 mg/dL (8.4-25.7); Calc. Creatinine Clearance 106 mL/min (70-130); Calcium 7.5 mg/dL (7.8-10.44); Carbon Dioxide 24 mmol/L (23-31); Chloride 102 mmol/L (98-107); Estimated GFR 96; Glucose 76 mg/dL (83-110); Potassium 3.5 mmol/L (3.5-5.1); Sodium 133 mmol/L (136-145)
[2023-05-17] MEDS: Clopidogrel Bisulfate 75 MG TAB PO SCH (08:46)
[2023-05-17] MEDS: Folic Acid 1 MG TAB PO SCH (08:46)
[2023-05-17] MEDS: Aspirin Chewable 81 MG TAB PO SCH (08:46)
[2023-05-17] MEDS: Tamsulosin HCl 0.4 MG CAP PO SCH ×2 (08:46→20:46)
[2023-05-17] MEDS: guaiFENesin ER 600 MG TAB PO SCH ×2 (08:46→20:46)
[2023-05-17] MEDS: Nebivolol HCl 5 MG TAB PO SCH (08:46)
[2023-05-17] MEDS: Atorvastatin Calcium 40 MG TAB PO SCH (08:46)
[2023-05-17] MEDS: Benzocaine/Menthol 1 LOZ LOZ PO PRN (08:46)
[2023-05-17] MEDS: Cefepime 2 GM in Sodium Chloride 0.9% 100 ML IVPB SCH ×2 (08:47→20:46)
[2023-05-17] MEDS: Azelastine 137 MCG/NASAL Spray 30 ML NS SCH (08:47)
[2023-05-17] MEDS: Lansoprazole 15 MG/5 ML (BATCHED)UDCUP PO SCH (08:47)
[2023-05-17] MEDS ORDERED: Benzonatate 100 MG CAP PO SCH (09:15)
[2023-05-17] MEDS: Benzonatate 100 MG CAP PO SCH ×2 (14:18→20:46)
[2023-05-17] MEDS: Azithromycin 500 MG in Sodium Chloride 0.9% 250 ML 250 ML IVPB SCH (17:22)
[2023-05-18] MEDS ORDERED: Guaifenesin DM 100-10/5 ML UDCUP PO PRN (05:41)
[2023-05-18] MEDS: guaiFENesin ER 600 MG TAB PO SCH ×2 (10:09→20:28)
[2023-05-18] MEDS: Nebivolol HCl 5 MG TAB PO SCH (10:09)
[2023-05-18] MEDS: Tamsulosin HCl 0.4 MG CAP PO SCH ×2 (10:09→20:28)
[2023-05-18] MEDS: Clopidogrel Bisulfate 75 MG TAB PO SCH (10:10)
[2023-05-18] MEDS: Benzonatate 100 MG CAP PO SCH ×3 (10:10→20:23)
[2023-05-18] MEDS: Atorvastatin Calcium 40 MG TAB PO SCH (10:10)
[2023-05-18] MEDS: Folic Acid 1 MG TAB PO SCH (10:10)
[2023-05-18] MEDS: Aspirin Chewable 81 MG TAB PO SCH (10:10)
[2023-05-18] MEDS: Cefepime 2 GM in Sodium Chloride 0.9% 100 ML IVPB SCH ×2 (10:11→20:23)
[2023-05-18] MEDS: Lansoprazole 15 MG/5 ML (BATCHED)UDCUP PO SCH (10:11)
[2023-05-18] MEDS: Azelastine 137 MCG/NASAL Spray 30 ML NS SCH (17:25)
[2023-05-18] MEDS: Azithromycin 500 MG in Sodium Chloride 0.9% 250 ML 250 ML IVPB SCH (18:37)
[2023-05-19 05:59] LABS: Hematocrit 34.3 % (42.0-52.0); Hemoglobin 11.5 g/dL (14.0-18.0); Manual Diff?? YES; Mean Corpuscular HGB CONC 33.5 g/dL (32.0-36.0); Mean Corpuscular Hemoglobin 29.2 pg (27.0-31.0); Mean Corpuscular Volume 87.1 fl (78.0-98.0); Mean Platelet Volume 13.3 fL (7.4-10.4); Platelet Count 134 10x3/uL (130-400); RBC Distribution Width 18.2 % (11.5-14.5); Red Blood Cell (RBC) Count 3.94 mill/uL (4.70-6.10); White Blood Cell (WBC) Count 3.1 10x3/uL (4.8-10.8)
[2023-05-19 06:32] LABS: Delete Auto Diff?? YES
[2023-05-19 06:34] LABS: Anion Gap 10 mmol/L (10-20); BUN (Urea Nitrogen) 7 mg/dL (8.4-25.7); Calc. Creatinine Clearance 97 mL/min (70-130); Calcium 7.7 mg/dL (7.8-10.44); Carbon Dioxide 26 mmol/L (23-31); Chloride 104 mmol/L (98-107); Estimated GFR 94; Glucose 79 mg/dL (83-110); Potassium 3.2 mmol/L (3.5-5.1); Sodium 137 mmol/L (136-145)
[2023-05-19 07:02] LABS: Band 7 % (5-11); Burr Cells MODERATE= 6-15 cells HPF (0-1); CellaVision Operator ID lab.abc; Large Platelets 20.4 % (0-5); Lymphocytes 8 % (21-51); Metamyelocyte 1 % (0-0); Monocytes 3 % (0-10); Neutrophil 78 % (42-75); Platelet Adequacy Comment Platelets Normal; Poikilocytosis SLIGHT = 6-15 cells HPF (0-5); Reactive Lymphocytes 1 % (0-10); Smudge Cells 53.1 %; Total Cell Count 98
[2023-05-19] MEDS: Atorvastatin Calcium 40 MG TAB PO SCH (09:25)
[2023-05-19] MEDS: guaiFENesin ER 600 MG TAB PO SCH ×2 (09:25→20:34)
[2023-05-19] MEDS: Clopidogrel Bisulfate 75 MG TAB PO SCH (09:25)
[2023-05-19] MEDS: Azelastine 137 MCG/NASAL Spray 30 ML NS SCH (09:25)
[2023-05-19] MEDS: Tamsulosin HCl 0.4 MG CAP PO SCH ×2 (09:25→20:34)
[2023-05-19] MEDS: Aspirin Chewable 81 MG TAB PO SCH (09:25)
[2023-05-19] MEDS: Benzonatate 100 MG CAP PO SCH ×3 (09:25→20:34)
[2023-05-19] MEDS: Folic Acid 1 MG TAB PO SCH (09:25)
[2023-05-19] MEDS: Nebivolol HCl 5 MG TAB PO SCH (09:25)
[2023-05-19] MEDS: Cefepime 2 GM in Sodium Chloride 0.9% 100 ML IVPB SCH (09:26)
[2023-05-19] MEDS: Benzocaine/Menthol 1 LOZ LOZ PO PRN (09:26)
[2023-05-19] MEDS ORDERED: Potassium Chloride 20 MEQ TAB PO SCH (15:45)
[2023-05-19] MEDS ORDERED: Furosemide 40 MG/4 ML VIAL SLOW IVP SCH (15:45)
[2023-05-20 04:54] LABS: Hematocrit 38.6 % (42.0-52.0); Hemoglobin 12.8 g/dL (14.0-18.0); Manual Diff?? YES; Mean Corpuscular HGB CONC 33.2 g/dL (32.0-36.0); Mean Corpuscular Hemoglobin 28.8 pg (27.0-31.0); Mean Corpuscular Volume 86.7 fl (78.0-98.0); Mean Platelet Volume 13.6 fL (7.4-10.4); Platelet Count 160 10x3/uL (130-400); RBC Distribution Width 18.3 % (11.5-14.5); Red Blood Cell (RBC) Count 4.45 mill/uL (4.70-6.10); White Blood Cell (WBC) Count 4.1 10x3/uL (4.8-10.8)
[2023-05-20 05:16] LABS: Delete Auto Diff?? YES
[2023-05-20 05:17] LABS: Anion Gap 10 mmol/L (10-20); BUN (Urea Nitrogen) 7 mg/dL (8.4-25.7); Calc. Creatinine Clearance 95 mL/min (70-130); Carbon Dioxide 25 mmol/L (23-31); Chloride 104 mmol/L (98-107); Estimated GFR 93; Glucose 84 mg/dL (83-110); Potassium 3.7 mmol/L (3.5-5.1); Sodium 135 mmol/L (136-145)
[2023-05-20 06:25] LABS: Anisocytosis SLIGHT = 6-15 cells HPF (0-5); Band 8 % (5-11); Burr Cells SLIGHT = 2-5 cells HPF (0-1); CellaVision Operator ID LAB.JMM; Elliptocytes SLIGHT = 2-5 cells HPF (0-1); Large Platelets 16.3 % (0-5); Lymphocytes 18 % (21-51); Macrocytosis SLIGHT = 6-15 cells HPF (0-5); Monocytes 1 % (0-10); Neutrophil 69 % (42-75); Ovalocytes SLIGHT = 2-5 cells HPF (0-1); Platelet Adequacy Comment Platelets Normal; Poikilocytosis SLIGHT = 6-15 cells HPF (0-5); Reactive Lymphocytes 2 % (0-10); Total Cell Count 98
[2023-05-20] MEDS: Aspirin Chewable 81 MG TAB PO SCH (09:55)
[2023-05-20] MEDS: Tamsulosin HCl 0.4 MG CAP PO SCH (09:55)
[2023-05-20] MEDS: Benzonatate 100 MG CAP PO SCH (09:55)
[2023-05-20] MEDS: guaiFENesin ER 600 MG TAB PO SCH (09:55)
[2023-05-20] MEDS: Atorvastatin Calcium 40 MG TAB PO SCH (09:55)
[2023-05-20] MEDS: Clopidogrel Bisulfate 75 MG TAB PO SCH (09:55)
[2023-05-20] MEDS: Folic Acid 1 MG TAB PO SCH (09:55)
[2023-05-20 10:33] VITALS: BP 145/76; TEMP 98.4
== END 2023-05-20 13:39 | disposition home health service (06) | DRG 871 ==
LOC: ERS 18:20 → 2NO 22:06 → OBSVTOIN 05-14 09:06 → MSONC 05-15 11:04 → 2NO 05-19 17:33
PROVIDERS: ADMIT Student in an Organized Health Care Education/Training Program; ATTEND Internal Medicine
DX: A41.9 Sepsis, unspecified organism (principal); I21.A1 Myocardial infarction type 2; E87.20 Acidosis, unspecified; E87.1 Hypo-osmolality and hyponatremia; N40.1 Benign prostatic hyperplasia with lower urinary tract symptoms; R33.8 Other retention of urine; K44.9 Diaphragmatic hernia without obstruction or gangrene; I10 Essential (primary) hypertension; I25.10 Atherosclerotic heart disease of native coronary artery without angina pectoris; E78.5 Hyperlipidemia, unspecified; E87.6 Hypokalemia; E78.00 Pure hypercholesterolemia, unspecified; R91.1 Solitary pulmonary nodule; Z79.82 Long term (current) use of aspirin; Z79.899 Other long term (current) drug therapy; Z74.01 Bed confinement status; Z95.1 Presence of aortocoronary bypass graft; Z11.52 Encounter for screening for COVID-19; Z87.891 Personal history of nicotine dependence
CPT/HCPCS: 36415; 36416; 71045; 80048; 80053; 81001; 83605; 83690; 84484; 85025; 87040; 87086; 87804; 93005; 96361; 96365; G0378; J0456; J0692; J0696; J1940; J3490; J7050; J7120; U0002

== ENCOUNTER 2024-05-15 19:40 | Inpatient (IN) | payer MEDICARE ==
[2024-05-15] MEDS ORDERED: Sodium Chloride 0.9% 100 ML ONE (20:01)
[2024-05-15] MEDS ORDERED: Piperacillin/Tazobactam 4.5 GM VIAL ONE (20:01)
[2024-05-15 20:33] LABS: Bilirubin Negative (Negative); Blood, Urine 2+ (Negative); CAUTI Indications for Culture Alt mental st,lethar; Clarity Extra Turbid (Clear); Glucose, Urine (Dipstick) Normal (Negative); Ketone, Urine Negative (Negative); Leukocyte 500 Leu/uL (Negative); Nitrite Negative (Negative); Protein, Urine (Dipstick) 200 mg/dL (Neg-Trace); Specific Gravity, Urine 1.007 (1.002-1.036); Squamous Epithelial None Seen HPF (0-3); Urobilinogen 3 mg/dL (Less than 2); pH, Urine 6.5 (5.0-9.0)
[2024-05-15 20:35] LABS: Bacteria/HPF 2+ HPF (None Seen); RBC/HPF 0-3 HPF (0-3); WBC/HPF Greater than 50 HPF (0-3)
[2024-05-15 20:37] LABS: Urine Culture Reflex Yes Yes
[2024-05-15 20:40] LABS: Actual Bicarbonate (HCO3v) 17.4 mEq/L (22-28); Analyzer IN Cardio ER; Base Excess -3.9 mEq/L (-2.0 to +3.0); Chloride (VBG) 96 mmol/L (98-106); Hematocrit-VBG 40 % (42.0-52.0); Hemoglobin (Hb) 13.5 g/dL (12.6-17.4); pH (venous) 7.494 (7.32-7.43)
[2024-05-15 20:42] LABS: Potassium (VBG) 6.16 mmol/L (3.70-5.30); Sodium 119 mmol/L (133-146)
[2024-05-15 20:43] LABS: Calcium, Ionized (venous) 0.77 mmol/L (1.16-1.32)
[2024-05-15 20:56] LABS: ALT (SGPT) 69 U/L (8-55); AST (SGOT) 45 U/L (5-34); Albumin 1.3 g/dL (3.4-4.8); Alkaline Phosphatase 96 U/L (40-110); Anion Gap 13 mmol/L (10-20); BUN (Urea Nitrogen) 38 mg/dL (8.4-25.7); Bilirubin, Total 0.7 mg/dL (0.2-1.2); Calc. Creatinine Clearance 0 mL/min (70-130); Calcium 6.1 mg/dL (7.8-10.44); Carbon Dioxide 18 mmol/L (23-31); Chloride 99 mmol/L (98-107); Estimated GFR 69; Globulin 2.5 g/dL (2.4-3.5); Glucose 104 mg/dL (83-110); Potassium 3.5 mmol/L (3.5-5.1); Protein, Total 3.8 g/dL (5.8-8.1); Sodium 126 mmol/L (136-145)
[2024-05-15 20:57] LABS: Troponin I 0.029 ng/mL (< 0.028)
[2024-05-15] MEDS ORDERED: CALCIUM GLUC 1 GM/NS 50 ML IV Bag ONE (20:58)
[2024-05-15 21:13] LABS: #Basophils 0.03 10x3/uL (0.0-0.2); %Basophils 0.2 % (0.0-1.0); %Eosinophils 1.4 % (0.0-10.0); %Lymphocytes 22.2 % (21.0-51.0); %Monocytes 3.1 % (0.0-10.0); %Neutrophils 72.1 % (42.0-75.0); Hematocrit 35.5 % (42.0-52.0); Hemoglobin 13.2 g/dL (14.0-18.0); Mean Corpuscular HGB CONC 37.2 g/dL (32.0-36.0); Mean Corpuscular Hemoglobin 29.3 pg (27.0-31.0); Mean Corpuscular Volume 78.9 fL (78.0-98.0); Mean Platelet Volume 12.8 fL (7.4-10.4); Platelet Count 152 10x3/uL (130-400); RBC Distribution Width 18.6 % (11.5-14.5)
[2024-05-15] MEDS ORDERED: fentaNYL 50 mcg/mL 1 mL Vial ONE (22:11)
[2024-05-15] MEDS ORDERED: Acetaminophen 325 MG TAB PO PRN (22:15)
[2024-05-15] MEDS ORDERED: Ondansetron PF 4 MG/2 ML Vial IVP PRN (22:15)
[2024-05-15] MEDS ORDERED: Ondansetron ODT 4 MG TAB SL PRN (22:15)
[2024-05-15] MEDS: Sodium Chloride 0.9% 1,000 ML IV SCH (23:00)
[2024-05-15] MEDS ORDERED: Vasopressin 20 UNITS in Sodium Chloride 0.9% 50 ML IV SCH (23:15)
[2024-05-15] MEDS: Vancomycin (BATCH) 1.5 GM in Premix 1 BAG IVPB SCH (23:32)
[2024-05-15] MEDS: Albumin 25% 25 GM (100 mL) BOT IVPB SCH (23:32)
[2024-05-15] MEDS ORDERED: Ipratropium/Albuterol 3 ML NEB NEB PRN (23:34)
[2024-05-15] MEDS: Vasopressin In 0.9 % NaCl 40 UNIT in Premix 1 BAG IV SCH (23:47)
[2024-05-15] MEDS: Hydrocortisone Sod Succ/PF 100 mg/2 ml Vial IVP SCH (23:47)
[2024-05-15 23:52] LABS: ALT (SGPT) 74 U/L (8-55); AST (SGOT) 52 U/L (5-34); Albumin 1.4 g/dL (3.4-4.8); Alkaline Phosphatase 117 U/L (40-110); Anion Gap 14 mmol/L (10-20); BUN (Urea Nitrogen) 38 mg/dL (8.4-25.7); Bilirubin, Total 0.9 mg/dL (0.2-1.2); Calc. Creatinine Clearance 0 mL/min (70-130); Calcium 6.6 mg/dL (7.8-10.44); Carbon Dioxide 17 mmol/L (23-31); Chloride 98 mmol/L (98-107); Estimated GFR 65; Globulin 2.7 g/dL (2.4-3.5); Glucose 127 mg/dL (83-110); Potassium 3.1 mmol/L (3.5-5.1); Protein, Total 4.1 g/dL (5.8-8.1); Sodium 126 mmol/L (136-145)
[2024-05-15 23:53] LABS: Troponin I 0.041 ng/mL (< 0.028)
[2024-05-16 00:06] VITALS: BMI 22.4
[2024-05-16] MEDS: Acetaminophen 325 MG TAB PO SCH (00:31)
[2024-05-16] MEDS: Sodium Chloride 0.9% 1,000 ML IV SCH ×3 (00:33)
[2024-05-16] MEDS: Piperacillin/Tazobactam 3.375 GM in Sodium Chloride 0.9% 100 ML IVPB SCH (00:34)
[2024-05-16] MEDS: Acetaminophen 650 MG Suppository PR PRN (00:51)
[2024-05-16] MEDS: Potassium Chloride 20 MEQ in Premix 1 BAG IVPB SCH (01:00)
[2024-05-16] MEDS: NOREPINEPHRINE 8 MG/250 ML-D5W 250 ML ONE (01:00)
[2024-05-16] MEDS: Calcium Chloride 13.6 MEQ in Sodium Chloride 0.9% 100 ML IVPB SCH (01:50)
[2024-05-16] MEDS ORDERED: Electrolyte Replacement Protocol 1 EACH FS PRN (03:54)
[2024-05-16] MEDS: Phenylephrine 40 MG/NS 250 ML 250 ML IVPB SCH (04:15)
[2024-05-16 04:39] VITALS: TEMP 96.8
[2024-05-16] MEDS: Amiodarone 450 MG in Dextrose 5% in Water 250 ML IVPB SCH (04:54)
[2024-05-16] MEDS: NOREPINEPHRINE 8 MG/250 ML-D5W 250 ML IVPB SCH (05:00)
[2024-05-16] MEDS ORDERED: Vancomycin 1 GM in Sodium Chloride 0.9% 250 ML 250 ML IVPB SCH (05:00)
[2024-05-16] MEDS: Hydrocortisone Sod Succ/PF 100 mg/2 ml Vial IVP SCH (05:01)
[2024-05-16 05:08] LABS: #Basophils Less than 0.03 10x3/uL (0.0-0.2); %Basophils 0.1 % (0.0-1.0); %Eosinophils 0.2 % (0.0-10.0); %Lymphocytes 13.8 % (21.0-51.0); %Neutrophils 83.1 % (42.0-75.0); Hematocrit 31.7 % (42.0-52.0); Hemoglobin 11.7 g/dL (14.0-18.0); Mean Corpuscular HGB CONC 36.9 g/dL (32.0-36.0); Mean Corpuscular Hemoglobin 29.2 pg (27.0-31.0); Mean Corpuscular Volume 79.1 fL (78.0-98.0); Mean Platelet Volume 12.9 fL (7.4-10.4); Platelet Count 144 10x3/uL (130-400); RBC Distribution Width 18.5 % (11.5-14.5); Red Blood Cell (RBC) Count 4.01 mill/uL (4.70-6.10)
[2024-05-16 05:48] LABS: ALT (SGPT) 60 U/L (8-55); AST (SGOT) 34 U/L (5-34); Albumin 2.1 g/dL (3.4-4.8); Alkaline Phosphatase 78 U/L (40-110); Anion Gap 13 mmol/L (10-20); BUN (Urea Nitrogen) 38 mg/dL (8.4-25.7); Bilirubin, Total 1.1 mg/dL (0.2-1.2); Calc. Creatinine Clearance 53 mL/min (70-130); Calcium 7.3 mg/dL (7.8-10.44); Carbon Dioxide 16 mmol/L (23-31); Chloride 99 mmol/L (98-107); Estimated GFR 70; Globulin 1.8 g/dL (2.4-3.5); Glucose 153 mg/dL (83-110); Magnesium 1.1 mg/dL (1.6-2.6); Phosphorus 3.3 mg/dL (2.3-4.7); Potassium 4.4 mmol/L (3.5-5.1); Protein, Total 3.9 g/dL (5.8-8.1); Sodium 124 mmol/L (136-145)
[2024-05-16 05:49] LABS: Vancomycin, Random 15.7 ug/mL (See Comment)
[2024-05-16] MEDS: EPINEPHrine 1 MG/10 ML Abboject SYRINGE ONE (06:18)
[2024-05-16] MEDS ORDERED: Magnesium Sulfate In Water 4 GM in Premix 1 BAG IVPB SCH (08:00)
[2024-05-16] MEDS ORDERED: Famotidine/PF 20 mg/2ml Vial SLOW IVP SCH (09:00)
[2024-05-16] MEDS ORDERED: Famotidine 20 MG TAB PO SCH (09:00)
[2024-05-16] MEDS ORDERED: Vancomycin 1.5 GM in Sodium Chloride 0.9% 250 ML 300 ML IVPB SCH (20:00)
== END 2024-05-16 09:22 | disposition expired | DRG 871 ==
LOC: ERS 19:40 → CCU 22:00
PROVIDERS: ADMIT Student in an Organized Health Care Education/Training Program; ATTEND Internal Medicine
PROC: 3E033XZ Introduction of Vasopressor into Peripheral Vein, Percutaneous Approach (ICD-10-PCS; principal; 2024-05-15)
PROC: 02HV33Z Insertion of Infusion Device into Superior Vena Cava, Percutaneous Approach (ICD-10-PCS; 2024-05-15)
PROC: 3E043XZ Introduction of Vasopressor into Central Vein, Percutaneous Approach (ICD-10-PCS; 2024-05-15)
PROC: 30233J1 Transfusion of Nonautologous Serum Albumin into Peripheral Vein, Percutaneous Approach (ICD-10-PCS; 2024-05-15)
PROC: 3E03329 Introduction of Other Anti-infective into Peripheral Vein, Percutaneous Approach (ICD-10-PCS; 2024-05-15)
PROC: 3E04329 Introduction of Other Anti-infective into Central Vein, Percutaneous Approach (ICD-10-PCS; 2024-05-15)
DX: A41.59 Other Gram-negative sepsis (principal); G93.41 Metabolic encephalopathy; R65.21 Severe sepsis with septic shock; N39.0 Urinary tract infection, site not specified; I50.32 Chronic diastolic (congestive) heart failure; E87.1 Hypo-osmolality and hyponatremia; E87.20 Acidosis, unspecified; J90 Pleural effusion, not elsewhere classified; E87.3 Alkalosis; Z66 Do not resuscitate; J44.9 Chronic obstructive pulmonary disease, unspecified; E78.5 Hyperlipidemia, unspecified; N40.0 Benign prostatic hyperplasia without lower urinary tract symptoms; K21.9 Gastro-esophageal reflux disease without esophagitis; B95.7 Other staphylococcus as the cause of diseases classified elsewhere; E83.51 Hypocalcemia; E88.09 Other disorders of plasma-protein metabolism, not elsewhere classified; I11.0 Hypertensive heart disease with heart failure; R74.01 Elevation of levels of liver transaminase levels; N31.9 Neuromuscular dysfunction of bladder, unspecified; Z87.891 Personal history of nicotine dependence; Z95.1 Presence of aortocoronary bypass graft; Z78.1 Physical restraint status
CPT/HCPCS: 36415; 70450; 71045; 80053; 80202; 81001; 82805; 83605; 83735; 84100; 84484; 85025; 87040; 87077; 87086; 87428; 93005; 93010; 94760; J0171; J0282; J0613; J1720; J2543; J3010; J3370; J3480; J7030; J7070; P9047